=== PATIENT | male | born 1960 | race Caucasian/White ===

== ENCOUNTER → 2019-04-15 | Outpatient (CLI) | payer OTHER | LOC: GMAM 12:21 | PROVIDERS: ATTEND Family Medicine | DX: M25.50 Pain in unspecified joint (principal); Z12.5 Encounter for screening for malignant neoplasm of prostate | CPT/HCPCS: 84550; 85651; 86038; 86060; 86140; 86431; G0103 ==

== ENCOUNTER → 2019-09-10 | Outpatient (CLI) | payer OTHER | LOC: GMAM 11:04 | PROVIDERS: ATTEND Family Medicine | DX: L40.52 Psoriatic arthritis mutilans (principal) ==

== ENCOUNTER → 2020-01-08 | Outpatient (CLI) | payer OTHER | LOC: GMAM 14:52 | PROVIDERS: ATTEND Family Medicine | DX: M10.9 Gout, unspecified (principal); E29.1 Testicular hypofunction; L40.52 Psoriatic arthritis mutilans ==

== ENCOUNTER → 2020-06-24 | Outpatient (CLI) | payer OTHER | LOC: GMAM 14:36 | PROVIDERS: ATTEND Family Medicine | DX: M06.9 Rheumatoid arthritis, unspecified (principal) ==